=== PATIENT | female | born 2000 | race Caucasian/White ===

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

== ENCOUNTER 2021-12-30 09:37 | Emergency (ER) | payer BC ==
[2021-12-30 09:59] VITALS: BP 118/76; PULSE 91; TEMP 98.6; BMI 19.5
[2021-12-30] MEDS ORDERED: DEXAMETHASONE SOD PHOSPHATE 10 MG/1 ML VIAL PO ONE (10:31)
[2021-12-30] MEDS ORDERED: DEXAMETHASONE SOD PHOSPHATE 10 MG/1 ML VIAL ONE (10:38)
== END 2021-12-30 10:42 | disposition home or self-care (01) ==
LOC: JER 09:37
DX: J06.9 Acute upper respiratory infection, unspecified (principal)
CPT/HCPCS: 0241U-QW; 99283-25; J1100